=== PATIENT | female | born 1975 | race American Indian/Alaskan Native ===

== ENCOUNTER 2017-02-08 10:30 | Emergency (ER) | payer OTHER ==
[2017-02-08 10:58] VITALS: TEMP 98.2
--- NOTE | 2017-02-08 11:21 | ED PDOC ---
Arrival/HPI - General Chief Complaint: Lower Extremity Problem/Injury Time Seen by Provider: 02/08/17 11:00 Historian: Patient - History of Present Illness Narrative History of Present Illness (Text): 02/08/17 11:17 Pt is a 41 year old female with past medical history for hypertension who complains of pain in her left knee. She states the pain has been ongoing for the past 2 months with worsening pain in the past week. For work she is on her feet a large portion of the day as well as walking up many flights of stairs. She reports the pain is worse with movement. She denies any trauma or falls. She has tried rama bandage wraps, excedrin and heating pads with out relieve. She also states she feels a lump on her lateral knee that she has noticed in the past few weeks. She is scheduled to see an orthopedic doctor in the next two weeks for her pain. She denies chest pain, shortness of breath, fever, nausea, vomiting and diarrhea. Past Medical History - Provider Review Nursing Documentation Reviewed: Yes - Infectious Disease Hx of Infectious Diseases: None - Psychiatric Hx Substance Use: No Family/Social History - Physician Review Nursing Documentation Reviewed: Yes Family/Social History: Diabetes, Hypertension Smoking Status: Never Smoked Hx Alcohol Use: No Hx Substance Use: No Allergies/Home Meds Allergies/Adverse Reactions: Allergies No Known Allergies Allergy (Verified 02/08/17 10:58) Home Medications: Home Meds Medication Instructions Recorded Confirmed No Known Home Med 02/08/17 02/08/17 Review of Systems - Physician Review All systems were reviewed & negative as marked: Yes - Review of Systems Constitutional: absent: Fatigue Musculoskeletal: Arthralgias (left knee pain) Neurological: absent: Focal Weakness, Gait Changes Physical Exam Vital Signs Reviewed: Yes Vital Signs Temp Pulse Resp BP Pulse Ox 02/08/17 10:55 98.2 F 67 16 129/85 99 Temperature: Afebrile Blood Pressure: Normal Pulse: Regular Respiratory Rate: Normal Appearance: Positive for: Well-Appearing Pain Distress: None Mental Status: Positive for: Alert and Oriented X 3 - Systems Exam Head: Present: Atraumatic, Normocephalic Pupils: Present: PERRL Extroacular Muscles: Present: EOMI Conjunctiva: Present: Normal Mouth: Present: Moist Mucous Membranes Neck: Present: Normal Range of Motion Respiratory/Chest: Present: Clear to Auscultation, Good Air Exchange. No: Respiratory Distress, Accessory Muscle Use Cardiovascular: Present: Regular Rate and Rhythm, Normal S1, S2. No: Murmurs Abdomen: Present: Normal Bowel Sounds. No: Tenderness, Distention, Peritoneal Signs Upper Extremity: Present: Normal Inspection. No: Cyanosis, Edema Lower Extremity: Present: NORMAL PULSES, Normal ROM, Swelling (minor swelling lateral left knee cap), Neurovascularly Intact, Capillary Refill < 2 s. No: Cyanosis, Inés's Sign, Tenderness, Erythema, Temperature Abnormalties Neurological: Present: GCS=15, CN II-XII Intact, Speech Normal Skin: Present: Warm, Dry, Normal Color. No: Rashes Psychiatric: Present: Alert, Oriented x 3, Normal Insight, Normal Concentration Medical Decision Making ED Course and Treatment: 02/08/17 11:49 Impression: Patient is a 41 year old female with past medical history of hypertension who complains of chronic, non-traumatic left knee pain that has been ongoing for the past 2 months. Differential Diagnosis included but are not limited to: - Patella femoral tendinitis - Iliotibial band syndrome - Degenerative lateral meniscal sprain Plan: - Left knee xray 3 view - Reassess and disposition Progress Notes: - RAD Interpretation Radiology Orders: 02/08/17 11:14 KNEE WITH PATELLA LEFT 3 VIEW [RAD] Stat - PA / INSURANCE INSTRUCTOR / Resident Statement / has reviewed & agrees with the documentation as recorded. / has examined the patient and agrees with the treatment plan. Disposition/Present on Arrival - Present on Arrival Any Indicators Present on Arrival: No History of DVT/PE: No History of Uncontrolled Diabetes: No Urinary Catheter: No History of Decub. Ulcer: No History Surgical Site Infection Following: None - Disposition Have Diagnosis and Disposition been Completed?: Yes Diagnosis: Patella-femoral syndrome Disposition: HOME/ ROUTINE Disposition Time: 12:15 Patient Plan: Discharge Condition: GOOD Discharge Instructions (ExitCare): Patellofemoral Pain Syndrome (ED), Patellar Tendinitis (ED) Additional Instructions: Mrs. Riggins, thank you for letting us take care of you today. Your provider was Dr. Walters. The emergency medical care you received today was directed at your acute symptoms. If you were prescribed any medication, please fill it and take as directed. It may take several days for your symptoms to resolve. Return to the Emergency Department if your symptoms worsen, do not improve, or if you have any other problems. Please contact your doctor or call one of the physicians/clinics you have been referred to that are listed on the Patient Visit Information form that is included in your discharge packet. Bring any paperwork you were given at discharge with you along with any medications you are taking to your follow up visit. Our treatment cannot replace ongoing medical care by a primary care provider (PCP) outside of the emergency department. Thank you for allowing the [facility] team to be part of your care today. Forms: [employer] ([place]ish)
[2017-02-08 13:14] VITALS: BP 136/97; PULSE 74; RESP 17; O2SAT 100
--- NOTE | 2017-02-08 13:15 | RAD ---
PROCEDURE: Left Knee Radiographs. HISTORY: Pain. COMPARISON: None. FINDINGS: BONES: Normal. No fracture. JOINTS: Normal. No osteoarthritis. JOINT EFFUSION: None. OTHER FINDINGS: The patella is unremarkable IMPRESSION: Normal radiographs of the left knee.
== END 2017-02-08 13:27 | disposition home or self-care (01) ==
LOC: ED 10:30
DX: M22.2X2 Patellofemoral disorders, left knee (principal); Z82.49 Family history of ischemic heart disease and other diseases of the circulatory system